=== PATIENT | male | born 1965 | race Two or more races ===

== ENCOUNTER 2016-09-16 15:13 | Emergency (ER) | payer SELFPAY ==
[~2016-09-16] VITALS: Ht 170.2 cm; Wt 72.6 kg
--- NOTE | 2016-09-16 15:13 | NUR ---
Patient was BIBA at this time.
--- NOTE | 2016-09-16 15:31 | NUR ---
Patient taken to bed 06.
[2016-09-16 15:36] VITALS: BP 151/98
[2016-09-16] MEDS ORDERED: MULTIVITAMIN-12 10 ML, THIAMINE 100 MG, MAGNESIUM SULFATE 50% 2,000 MG, FOLIC ACID 5 MG... IV ONE ×5 (15:40)
[2016-09-16] MEDS ORDERED: NACL 0.9% 1,000 ML IV ONE (15:40)
[2016-09-16] MEDS ORDERED: MULTIVITAMIN-12 10 ML, THIAMINE 100 MG, MAGNESIUM SULFATE 50% 2,000 MG, FOLIC ACID 5 MG... IV SCH ×5 (15:45)
--- NOTE | 2016-09-16 15:55 | NUR ---
PATIENT BIBA DUE TO ALCOHOL INTOXICATION; PT AWAKE,ALERT,FOLLOWS COMMANDS. MONITORED.HX: ALCOHOLISM.KIN IS PINK/WARM/DRY; AAOX4 ; LUNGS CLEAR BL; HR EVEN AND REGULAR; PT DENIES ANY FEVER, CP, SOB, OR COUGH AT THIS TIME; PATIENT STATES PAIN OF 0/10 AT THIS TIME;PATIENT POSITIONED FOR COMFORT; HOB ELEVATED; BEDRAILS UP X2; BED DOWN. ALL MONITORS IN PLACED.
--- NOTE | 2016-09-16 16:15 | NUR ---
Patient going to CT via [facility].
[2016-09-16 16:16] LABS: APPEARANCE,URINE CLEAR (CLEAR); BILIRUBIN,URINE NEGATIVE (NEGATIVE); BLOOD, URINE NEGATIVE (NEGATIVE); COLOR,URINE YELLOW (YELLOW); LEUKOCYTE ESTERASE ,URINE NEGATIVE (NEGATIVE); NITRITE, URINE NEGATIVE (NEGATIVE); PH,URINE 6.5 (5.0-9.0); PROTEIN,URINE NEGATIVE (NEGATIVE); UGLUCOSE NEGATIVE (NEGATIVE); UROBILINOGEN,URINE 0.2 EU/dL (0.2 - 1)
[2016-09-16 16:17] LABS: BACTERIA,URINE 0-2 (RARE) /HPF (None Seen); BASOPHILS # (AUTO) 0.1 K/uL (0.00-0.22); BASOPHILS % (AUTO) 1.3 % (0.0-2.0); EOSINOPHILS # (AUTO) 0.1 K/uL (0-0.4); EOSINOPHILS % (AUTO) 1.6 % (0.0-4.0); HEMATOCRIT 48.4 % (36-52); HEMOGLOBIN 16.1 g/dL (12.0-18.0); LYMPHOCYTES # (AUTO) 1.1 K/uL (2.0-11.5); LYMPHOCYTES % (AUTO) 18.4 % (20.5-51.1); MEAN CORPUSCULAR HEMOGLOBIN 28 pg (27-31); MEAN CORPUSCULAR HGB CONC 33 g/dL (33-37); MEAN CORPUSCULAR VOLUME 85 fL (80-94); MONOCYTES # (AUTO) 0.6 K/uL (0.8-1.0); MONOCYTES % (AUTO) 9.7 % (1.7-9.3); NEUTROPHILS # (AUTO) 3.8 K/uL (1.8-7.7); PLATELET COUNT (AUTO) 140 K/uL (140-450); RBC,URINE 0-5 (RARE) /HPF (0-5); RED BLOOD CELL COUNT(AUTO) 5.69 MIL/uL (4.20-6.10); RED CELL DISTRIBUTION WIDTH 14.3 % (11.6-13.7); SQUAMOUS EPITHELIAL CELL,UR None Seen /LPF (0-3 (FEW)); WBC,URINE 0-5 (RARE) /HPF (0-5); WHITE BLOOD COUNT (AUTO) 5.8 K/uL (4.8-10.8)
[2016-09-16 16:21] LABS: ANION GAP 12.5 (8-16); CALCIUM 8.3 mg/dL (8.5-10.1); CARBON DIOXIDE 29.7 mmol/L (21-32); CREATININE 0.9 mg/dL (0.6-1.3); POTASSIUM 3.2 mmol/L (3.5-5.1)
[2016-09-16 16:25] LABS: AMPHETAMINE, URINE NEG. ng/ml (NEG <=1000); BARBITURATE, URINE NEG. ng/ml (NEG <=200); BENZODIAZEPINE, URINE NEG. ng/mL (NEG <=200); CANNABINOID, URINE NEG. ng/mL (NEG <=50); COCAINE, URINE NEG. ng/mL (NEG <=300); OPIATE, URINE NEG. ng/mL (NEG <=2000); PHENCYCLIDINE SCREEN,URINE NEG. ng/mL (NEG <=25)
[2016-09-16 16:28] LABS: ALBUMIN 4.1 g/dL (3.4-5.0); BILIRUBIN,DIRECT 0.2 mg/dL (0.0-0.3); TOTAL PROTEIN, SERUM 8.1 g/dL (6.4-8.2)
--- NOTE | 2016-09-16 16:31 | NUR ---
Patient back from CT via [facility].
[2016-09-16 16:41] LABS: INR 1.1 (0.8-1.2); PARTIAL THROMBOPLASTIN TIME 24.6 secs (22-35.6); PROTHROMBIN TIME 11.2 secs (10.8-13.4)
--- NOTE | 2016-09-16 17:20 | NUR ---
PT SLEEPING;ALL MONITORS IN PLACED;NO ACUTE DISTRESS NOTED;WILL CONTINUE TO MONITOR PT.
--- NOTE | 2016-09-16 18:18 | NUR ---
PT RESTING ON BED;NO ACUTE DISTRESS NOTED;ALL MONITORS IN PLACED;WILL CONTINUE TO MONITOR PT.
--- NOTE | 2016-09-16 19:04 | NUR ---
PT WOKE UP AND ASKED FOR SLEEPING PILL. INFORMED PT THAT HE WAS SLEEPING GOOD A WHILE AGO.
--- NOTE | 2016-09-16 19:19 | NUR ---
Pt report given to LOAN RODRIGUEZ. Transfer of care at this time.
--- NOTE | 2016-09-16 19:20 | NUR ---
GOT REPORT FROM LOAN HOWARD. PT. RESTING IN BED, NO S/SX OF DISTRESS AT THIS TIME.
--- NOTE | 2016-09-16 19:33 | NUR ---
Dr. Carson evaluating patient at bedside.
--- NOTE | 2016-09-16 20:00 | NUR ---
PT. AAO X4, AMBULATORY WITH STEADY GAIT. VSS, NO S/SX OF DISTRESS AT THIS TIME.
--- NOTE | 2016-09-16 20:40 | NUR ---
Patient discharged with v/s stable. Written and verbal after care instructions given and explained. Patient verbalized understanding. Ambulatory with steady gait. All questions addressed prior to discharge. Advised to follow up with PMD.
[2016-09-16 20:42] VITALS: BP 126/98
== END 2016-09-16 20:40 | disposition home or self-care (01) ==
LOC: MED 15:13
DX: K70.10 Alcoholic hepatitis without ascites (principal); F10.229 Alcohol dependence with intoxication, unspecified; R94.5 Abnormal results of liver function studies
CPT/HCPCS: 36415; 70450; 71010; 80053; 80076; 80305; 81001; 85025; 85610; 85730; 93005; 96365; 96366; 99285; A9153; G0482; J3411; J3475; J3490; J7030; Q0092

== ENCOUNTER 2020-09-02 19:02 | Emergency (ER) | payer SELFPAY ==
[~2020-09-02] VITALS: Ht 167.6 cm; Wt 79.4 kg
[2020-09-02 19:05] VITALS: BP 142/90
[2020-09-02] MEDS ORDERED: AMMONIA AROMATIC 1 INHL INH ONE (22:10)
== END 2020-09-02 22:19 | disposition home or self-care (01) ==
LOC: MED 19:02
DX: F10.129 Alcohol abuse with intoxication, unspecified (principal); Y90.9 Presence of alcohol in blood, level not specified
CPT/HCPCS: 99283

== ENCOUNTER 2021-02-18 16:49 | Emergency (ER) | payer SELFPAY ==
[~2021-02-18] VITALS: Ht 167.6 cm; Wt 79.4 kg
--- NOTE | 2021-02-18 16:51 | NUR ---
PT BIBA TAKEN TO ER BED 9.
[2021-02-18 16:53] VITALS: BP 160/75
[2021-02-18 17:09] VITALS: BP 160/75
--- NOTE | 2021-02-18 17:09 | NUR ---
PATIENT LEFT WITHOUT BEING SEEN BY DR. PEARSON. NO FURTHER CARE PROVIDED FOR PATIENT.
== END 2021-02-18 17:09 | disposition left against medical advice (07) ==
LOC: MED 16:49
DX: F10.129 Alcohol abuse with intoxication, unspecified (principal); Z53.21 Procedure and treatment not carried out due to patient leaving prior to being seen by health care provider

== ENCOUNTER 2021-02-20 20:36 | Emergency (ER) | payer SELFPAY ==
[~2021-02-20] VITALS: Ht 165.1 cm; Wt 81.6 kg
--- NOTE | 2021-02-20 20:38 | NUR ---
RAY ROSS VIA GURNEY TO BED 08.
[2021-02-20 20:40] VITALS: BP 122/74
--- NOTE | 2021-02-20 20:49 | NUR ---
DR JOSEPH AT BEDSIDE EVALUATING PT
--- NOTE | 2021-02-20 21:05 | NUR ---
RAD AT BEDSIDE
[2021-02-20 22:43] LABS: BASOPHILS % (AUTO) 0.3 % (0.0-2.0); EOSINOPHILS # (AUTO) 0.1 K/uL (0-0.4); EOSINOPHILS % (AUTO) 1.2 % (0.0-4.0); HEMATOCRIT 36.2 % (36-52); HEMOGLOBIN 12.3 g/dL (12.0-18.0); LYMPHOCYTES # (AUTO) 1.6 K/uL (2.0-11.5); LYMPHOCYTES % (AUTO) 22.7 % (20.5-51.1); MEAN CORPUSCULAR HEMOGLOBIN 28 pg (27-31); MEAN CORPUSCULAR HGB CONC 34 g/dL (33-37); MEAN CORPUSCULAR VOLUME 81.4 fL (80-94); MONOCYTES # (AUTO) 0.7 K/uL (0.8-1.0); MONOCYTES % (AUTO) 10.7 % (1.7-9.3); NEUTROPHILS # (AUTO) 4.6 K/uL (1.8-7.7); NEUTROPHILS % (AUTO) 65.1 % (42.2-75.2); PLATELET COUNT (AUTO) 61 K/uL (140-450); RED BLOOD CELL COUNT(AUTO) 4.45 MIL/uL (4.20-6.10); RED CELL DISTRIBUTION WIDTH 16.1 % (11.6-13.7)
[2021-02-20 22:57] LABS: ALBUMIN 3.5 g/dL (3.4-5.0); ANION GAP 14.4 (8-16); CREATININE 0.7 mg/dL (0.6-1.3); POTASSIUM 3.4 mmol/L (3.5-5.1); TOTAL BILIRUBIN 1.6 mg/dL (0.0-1.0)
--- NOTE | 2021-02-20 23:22 | NUR ---
COMPLETE ASSESSMENT PERFORMED AT 2322 WAS CHARTED BY NOA CATES. CHARTED UNDER [employer] TECH[employer]IST PROFILE BUT PERFORMDE BY NOA CATES
--- NOTE | 2021-02-20 23:42 | NUR ---
Timi polo in ED - 02/20/21 at 2344 by SANDY XRAY AT BEDSIDE
--- NOTE | 2021-02-21 00:30 | NUR ---
Patient appears to be resting comfortably in bed. Vital Signs within normal limits. Respirations even and unlabored. BOTH BED RAILS DOWN AND BED AT LOWEST POSITION.
--- NOTE | 2021-02-21 01:30 | NUR ---
Patient appears to be resting comfortably in bed. Vital Signs within normal limits. Respirations even and unlabored. BOTH BED RAILS UP AND BED AT LOWEST POSITION.
--- NOTE | 2021-02-21 02:30 | NUR ---
Patient appears to be resting comfortably in bed. Vital Signs within normal limits. Respirations even and unlabored. BOTH BED RAILS DONE AND BED AT LOWEST POSITION.
--- NOTE | 2021-02-21 03:19 | NUR ---
EMT ATTEMPTING TO PUT SPLINT ON PT BEFORE D/C. Addendum: 02/21/21 at 0320 by [email or web address] EMT PUTTING ON SPLINT FOR PT BEFORE D/C.
[2021-02-21 03:25] VITALS: BP 113/73
--- NOTE | 2021-02-21 03:25 | NUR ---
Patient discharged with v/s stable. Written and verbal after care instructions given and explained. Patient verbalized understanding. Wheel Chair Assisted with steady gait. All questions addressed prior to discharge. Advised to follow up with PMD.
--- NOTE | 2021-02-21 03:32 | NUR ---
PATIENT CLEARED FOR DISCHARGE AT THIS TIME. NO FURTHER COMPLAINTS OR CONCERNS AFTER DISCHARGE TEACHING. ADVISED TO FOLLOW UP WITH PCP. TAKEN TO LOBBY VIA WHEELCHAIR FOR ARRANGEMENT.
--- NOTE | 2021-02-21 03:34 | NUR ---
Chart checked and completed. The patient's care was reviewed and supervised by [facility], RN.
== END 2021-02-21 03:32 | disposition home or self-care (01) ==
LOC: MED 20:36
DX: S42.031A Displaced fracture of lateral end of right clavicle, initial encounter for closed fracture (principal); F10.129 Alcohol abuse with intoxication, unspecified; W01.198A Fall on same level from slipping, tripping and stumbling with subsequent striking against other object, initial encounter; Y92.89 Other specified places as the place of occurrence of the external cause; Y93.89 Activity, other specified; Y99.8 Other external cause status
CPT/HCPCS: 36415; 70450; 71045; 71260; 72125; 73030; 73060; 74160; 80053; 85025; 86886; 86900; 86901; 99285; Q0092; Q9967

== ENCOUNTER 2021-08-21 16:58 | Emergency (ER) | payer SELFPAY ==
[~2021-08-21] VITALS: Ht 162.6 cm; Wt 68.9 kg
[2021-08-21 17:00] VITALS: BP 121/76
--- NOTE | 2021-08-21 17:03 | NUR ---
PT REFUSED TREATMENT, DR FRANKLIN AT BEDSIDE
--- NOTE | 2021-08-21 17:04 | NUR ---
DR FRANKLIN ASSESSING PT AT THIS TIME.
--- NOTE | 2021-08-21 17:05 | NUR ---
PATIENT ELOPED FROM FACILITY. DISCHARGE INSTRUCTIONS NOT GIVEN TO PATIENT. DR. FRANKLIN NOTIFIED.
== END 2021-08-21 17:05 | disposition left against medical advice (07) ==
LOC: MED 16:58
DX: F10.129 Alcohol abuse with intoxication, unspecified (principal); F17.200 Nicotine dependence, unspecified, uncomplicated
CPT/HCPCS: 99283